=== PATIENT | female | born 1995 | race Caucasian/White ===

== ENCOUNTER 2024-03-02 15:52 | Emergency (ER) | payer BC, OTHER ==
[2024-03-02 16:18] VITALS: BP 127/78; O2SAT 99
--- NOTE | 2024-03-02 16:54 | ED Physician Documentation ---
PD HPI UPPER EXT INJURY - Stated complaint Stated Complaint: L FINGER LAC - Chief complaint Chief Complaint: Ext Problem - Additonal information Additional information: 28-year-old female with no pertinent past medical history presents emergency department for left middle finger laceration. Patient was cutting an onion knife excellently slipped and cut the medial portion of the tip of her left middle finger. No nail involvement she is up-to-date with her tetanus shot bleeding is well-controlled. 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 - Present Medications Home Medications: Ambulatory Orders Medication Instructions Recorded Confirmed Drospirenone/Estetrol [Nextstellis 1 each PO DAILY 03/02/24 03/02/24 3-14.2 mg Tablet] - Allergies Allergies/Adverse Reactions: Allergies Allergy/AdvReac Type Severity Reaction Status Date / Time No Known Drug Allergies Allergy Verified 03/02/24 16:04 - Social History Does the pt smoke?: No Smoking Status: Never smoker Does the pt drink ETOH?: Yes Does the pt have substance abuse?: No - Immunizations Immunizations are current?: Yes PD ED PE NORMAL - Vitals Vital signs reviewed: Yes - General General: Alert and oriented X 3, No acute distress, Well developed/nourished PD ED PE EXPANDED - Derm Derm: Laceration(s) (tip of left middle finger to the medial aspect about 0.5cm long) Results - Vitals Vitals: Vital Signs - 24 hr 03/02/24 15:56 Temperature 35.9 C L Heart Rate 87 Respiratory 16 Rate Blood Pressure 127/78 O2 Saturation 99 Oxygen O2 Source Room air Procedures - Laceration (location) left middle finger Length in cm: 0.5 (tip of left middle finger to the medial aspect not over joint) Wound type: Linear, Superficial, Clean Neurovascular status: Sensory intact, Motor intact, Vascular intact Tendon involvement: Tendon intact Wound preparation: Irrigated copiously NS, Wound explored Skin layer closure: Dermabond Other: Patient tolerated well, No complications, Neurovascular intact, Tetanus UTD PD Medical Decision Making - ED course ED course: 28-year-old female presents emergency department for a 0.5 cm laceration to the tip of her left middle finger to the medial aspect. Bleeding is well-controlled it appears to overall be fairly superficial. Patient was offered sutures but she opted for glue. She was taught how to manage her wound at home taught signs symptoms of infection and when to remove glue. All questions answered tetanus shot up-to-date patient is safe for discharge. Departure - Departure Disposition: 01 Home, Self Care Clinical Impression: Finger laceration Qualifiers: Encounter type: initial encounter Finger: middle finger Damage to nail status: without damage Foreign body presence: without foreign body Laterality: left Qualified Code(s): S61.213A - Laceration without foreign body of left middle finger without damage to nail, initial encounter Instructions: ED Laceration Hand, ED Laceration Small Superf No Sutr Comments: Thank you for trusting us with your care. We have placed a small layer of glue over the laceration of your finger and it is important to try and keep this as dry as possible also that the glue can stay on for as long as possible. Watch out for signs and symptoms of infection which include redness and swelling, drainage that is yellow or green, fevers or chills or any other concerning symptoms. Please come back to the emergency department if you are noticing any signs or symptoms of infection or report to your primary care provider. Forms: PCP List Discharge Date/Time: 03/02/24 17:14
== END 2024-03-02 17:14 | disposition home or self-care (01) ==
LOC: ED 15:52
DX: S61.213A Laceration without foreign body of left middle finger without damage to nail, initial encounter (principal); W26.0XXA Contact with knife, initial encounter; Y93.G9 Activity, other involving cooking and grilling
CPT/HCPCS: 12001; 99283